=== PATIENT | female | born 1990 | race Caucasian/White ===

== ENCOUNTER 2017-03-17 18:29 | Outpatient (CLI) | payer OTHER ==
[~2017-03-17] VITALS: Ht 160 cm; Wt 69.0 kg
[~2017-03-17 18:29] MED LIST: BISM262O23 PO
[2017-03-17] MEDS ORDERED: PNV11TAB PO (19:07)
[2017-03-17] MEDS ORDERED: FERR236T PO (19:08)
[2017-03-17 19:09] VITALS: BP 108/60; PULSE 80; RESP 18
[2017-03-17 20:20] LABS: ADD UMIC NO; UR ASCORBIC ACID NEGATIVE (NEGATIVE); UR BILIRUBIN (Dip) NEGATIVE (NEGATIVE); UR BLOOD (Dip) NEGATIVE (NEGATIVE); UR CLARITY CLEAR (CLEAR); UR COLOR COLORLESS (YELLOW); UR GLUCOSE (Dip) NEGATIVE (NEGATIVE); UR KETONES (Dip) NEGATIVE (NEGATIVE); UR LEUKOCYTE ESTERASE (Dip) NEGATIVE Leu/ul (NEGATIVE); UR NITRITE (Dip) NEGATIVE (NEGATIVE); UR SPECIFIC GRAVITY (Dip) 1.002 (1.003-1.030); UR TOTAL PROTEIN (Dip) NEGATIVE (NEGATIVE); UR UROBILINOGEN (Dip) NEGATIVE (NEGATIVE)
[2017-03-17 20:33] LABS: BASOPHILS % 0.3 % (0.0-2.0); EOSINOPHILS # 0.1 10^3/ul (0.0-0.5); EOSINOPHILS % 1.3 % (0.0-7.0); HEMATOCRIT 31.1 % (37.0-47.0); HEMOGLOBIN 10.5 g/dl (12.0-16.0); LYMPHOCYTES % 29.7 % (15.0-51.0); MEAN CORPUSCULAR HEMOGLOBIN 32.8 pg (29.0-33.0); MEAN CORPUSCULAR HGB CONC 33.8 g/dl (32.0-37.0); MEAN CORPUSCULAR VOLUME 97.2 fl (82.0-101.0); MEAN PLATELET VOLUME 11.5 fl (7.4-10.4); MONOCYTE # 0.5 10^3/ul (0.3-0.9); MONOCYTES % 7.2 % (0.0-11.0); NEUTROPHIL # 4.2 10^3/ul (1.6-7.5); NEUTROPHILS % 61.2 % (39.0-77.0); PLATELET COUNT 158 10^3/UL (140-415); RED CELL DISTRIBUTION WIDTH 12.8 % (11.5-14.5); WHITE BLOOD COUNT 6.8 10^3/ul (4.8-10.8)
--- NOTE | 2017-03-17 20:38 | RADRPT ---
PROCEDURE: Right upper quadrant abdominal ultrasound. CLINICAL INDICATION: Abdominal pain TECHNIQUE: Gunter scale and color doppler ultrasound images of the right upper quadrant of the abdom en. COMPARISON: None FINDINGS: Pancreas: Not adequately visualized due to overlying bowel gas. Liver: Morphology:Normal in size. Contour:Normal, no evidence of nodularity. Echogenicity: Normal. Focal lesions:None. Main portal vein: Patent with hepatopetal flow. Biliary System: Gallbladder wall: Normal thickness. Gallstones: None. Intrahepatic bile ducts: Normal caliber. Common bile duct diameter (mm): 2.3 Kidneys: Right length (cm) : 11.5 Right cortical thickness: Normal. Echogenicity: Normal. Hydronephrosis: None. Renal calculi: None. Focal lesions: None. Free fluid/ascites: None. Abdominal aorta: Normal caliber of the visualized segments. Other findings: None. IMPRESSION: Normal gallbladder without gallstones. RPTAT: AADD .Antione Johnston MD, MD Date Time Electronically viewed and signed by .Antione Johnston MD, on 03/17/2017 20:38 .B/
[2017-03-17 21:12] LABS: ALBUMIN 3.3 g/dl (3.3-4.9); ALBUMIN/GLOBULIN RATIO 1.17; BILIRUBIN,INDIRECT 0.2 mg/dl (0-1.1); BILIRUBIN,TOTAL 0.2 mg/dl (0.2-1.3); CALCIUM 8.4 mg/dl (8.4-10.2); CREATININE 0.6 mg/dl (0.44-1.00); POTASSIUM 3.8 mmol/L (3.5-5.1); TOTAL PROTEIN 6.1 g/dl (6.1-8.1)
--- NOTE | 2017-03-17 22:40 | RADRPT ---
PROCEDURE: ULTRASOUND OBSTETRICAL CLINICAL INDICATION: 26-year-old female in labor for cervical length evaluation. TECHNIQUE: Multiple sonographic images of the pelvis were obtained. The images were reviewed on a PACS workstation. COMPARISON: No prior studies are available for comparison. FINDINGS: The cervix is closed with a length of 3.5 cm obtained transvaginally. Minimal fluid is seen within t he endocervical canal. There is a single viable intrauterine gestation. Cardiac activity is present with 152 beats per minute. There is a breech presentation. The placenta is a grade 1. There is no e vidence for an abruption or placenta previa. IMPRESSION: 1. Single viable intrauterine gestation with breech presentation. 2. The cervix has a length of 3.5 cm with minimal fluid. .Zach Berger MD, Date Time Electronically viewed and signed by .Zach Berger MD, on 03/17/2017 22:40 .M/
--- NOTE | 2017-03-17 23:55 | PN ---
Triage Information Date/Time Mar 17, 2017 Reason for visit: Oligohydramnios Weeks of Gestation 29w 3d /Para 2/1 Diabetes: none Hypertention: none Objective Vital Signs Date Time Temp Pulse Resp B/P Pulse Ox O2 Delivery O2 Flow Rate FiO2 03/17/17 19:09 98.4 80 18 108/60 100 Room Air Heart Rate: 130's Heart Rate Comments Accels to 150 bpm. No decels. Contractions: 6-10 Minutes Apart Exam Deferred. Results/Medications Result Diagram: 03/17/17201903/17/172019 Results 24 hrs Laboratory Tests Test 03/17/17 19:00 03/17/17 20:20 Urine Color COLORLESS Urine Clarity CLEAR Urine pH 7.0 Urine Specific [place] 1.002 L Urine Ketones NEGATIVE Urine Nitrite NEGATIVE Urine Bilirubin NEGATIVE Urine Urobilinogen NEGATIVE Urine Leukocyte Esterase NEGATIVE Urine Hemoglobin NEGATIVE Urine Glucose NEGATIVE Urine Total Protein NEGATIVE White Blood Count 6.8 # Red Blood Count 3.20 #L Hemoglobin 10.5 #L Hematocrit 31.1 #L Mean Corpuscular Volume 97.2 Mean Corpuscular Hemoglobin 32.8 Mean Corpuscular Hemoglobin Concent 33.8 Red Cell Distribution Width 12.8 Platelet Count 158 Mean Platelet Volume 11.5 H Neutrophils % 61.2 Lymphocytes % 29.7 Monocytes % 7.2 Eosinophils % 1.3 Basophils % 0.3 Nucleated Red Blood Cells % 0.0 Neutrophils # 4.2 Lymphocytes # 2.0 Monocytes # 0.5 Eosinophils # 0.1 Basophils # 0.0 Nucleated Red Blood Cells # 0.0 Sodium Level 135 Potassium Level 3.8 Chloride Level 105 Carbon Dioxide Level 25 Anion Gap 9 Blood Urea Nitrogen 9 Creatinine 0.60 Glucose Level 89 Calcium Level 8.4 Total Bilirubin 0.2 Direct Bilirubin 0.00 Indirect Bilirubin 0.2 Aspartate Amino Transf (AST/SGOT) 16 Alanine Aminotransferase (ALT/SGPT) 25 Alkaline Phosphatase 88 Total Protein 6.1 Albumin 3.3 Globulin 2.80 Albumin/Globulin Ratio 1.17 Amylase Level 76 Lipase 103 Imaging Results Cx length 3.5 cm. RUQ US negative. Disposition: Discharge Assessment/Plan A: IUP at 29w 3d. RUQ pain. H/O gastritis. P: D/C home. Pt is feeling much better now. Encouraged to keep up fluid intake. PTL precautions given. May take TUMs, OTC Prilosec or Zantac or Tagamet. Had some contractions on admit that she didn't feel and after p.o. hydration they spaced out a lot. RAFITA CHATTERJEE MD Mar 17, 2017 23:55
--- NOTE | 2017-03-18 00:11 | TRIAGE ---
OB Triage Datetime Report Generated by CPN: 03/18/2017 00:10 Datetime: 03/17/2017 23:39 Stage of : OB Triage Monitor Mode: External Quality: Mild Pattern: Normal: <= 5 Contractions in 10 Minutes Resting Tone [place]: Relaxed Heart Rate FHR Baseline Rate: 130 Monitor Mode: External US FHR Baseline Changes: No Baseline Change Variability: Moderate 6-25 bpm Accelerations: 10X10 Decelerations: None Category: Category I Pain Assessment Pain Scale: 2 Datetime: 03/17/2017 22:40 Stage of : OB Triage Heart Rate FHR Baseline Rate: 130 Monitor Mode: External US Datetime: 03/17/2017 21:51 Stage of : OB Triage Labor Evaluation Frequency: 1.5-4 Monitor Mode: External Duration (sec)2399: 20-50 Quality: Mild Pattern: Normal: <= 5 Contractions in 10 Minutes Resting Tone [place]: Relaxed Contraction Comments: Pt denies cramping Heart Rate FHR Baseline Rate: 130 Monitor Mode: External US FHR Baseline Changes: No Baseline Change Variability: Moderate 6-25 bpm Accelerations: 10X10 Decelerations: None Category: Category I Datetime: 03/17/2017 21:20 Stage of : OB Triage Monitor Mode: External Duration (sec)2399: 10-20sec Quality: Mild Resting Tone [place]: Relaxed Contraction Comments: Pt denies feeling cramping, just upper abd pain Heart Rate FHR Baseline Rate: 130 Monitor Mode: External US FHR Baseline Changes: No Baseline Change Variability: Moderate 6-25 bpm Accelerations: 10X10 Decelerations: None Category: Category I Pain Assessment Pain Scale: 4 Pain Type: Sharp Pain Location: Abdomen Datetime: 03/17/2017 20:41 Stage of : OB Triage Heart Rate FHR Baseline Rate: 140 Monitor Mode: External US Datetime: 03/17/2017 20:11 Heart Rate FHR Baseline Rate: 140 Monitor Mode: External US FHR Baseline Changes: No Baseline Change Variability: Moderate 6-25 bpm Accelerations: 15X15 Decelerations: None Category: Category I Datetime: 03/17/2017 20:00 Stage of : OB Triage Datetime: 03/17/2017 19:40 Stage of : OB Triage Labor Evaluation Frequency: 0 Monitor Mode: External Pattern: Normal: <= 5 Contractions in 10 Minutes Resting Tone [place]: Relaxed Heart Rate FHR Baseline Rate: 140 Monitor Mode: External US FHR Baseline Changes: No Baseline Change Variability: Moderate 6-25 bpm Accelerations: 15X15 Decelerations: None Category: Category I Pain Assessment Pain Scale: 6 Pain Presence: Intermittent Pain Type: Sharp Pain Location: Abdomen Pain Assessment Comments: upper abdomen Datetime: 03/17/2017 19:15 Vaginal Exam Membrane Status: Intact Datetime: 03/17/2017 19:03 Stage of : OB Triage Assessment Type: Triage Maternal Assessment Level of Consciousness: Fully Conscious Headache: Denies Blurred Vision: No Respiratory Effort: Unlabored; Regular Rhythm; Equal Expansion Breath Sounds, Left: Clear and Equal Breath Sounds, Right: Clear and Equal Nausea/Vomiting: Denies RUQ Epigastric Pain: Denies Lower Extremities Edema: None Degree: None Upper Extremities Edema: None Degree: None Facial Edema: None Temperature Route: Oral Fall Risk Assessment History of Falling: (0) No Secondary Diagnosis: (0) No Ambulatory Aid: (0) Bedrest/Nurse Assist IV Therapy: (0) No Gait: (0) Normal/Bedrest/Immobile Mental Status: (0) Oriented to Own Ability Fall Score: 0 Fall Risk Score Definition: No Risk: No action required Pain Assessment Pain Scale: 7 Pain Presence: Constant Pain Type: Sharp Pain Location: Abdomen (Annotations: upper right abdomen) Datetime: 03/17/2017 19:01 Time of Arrival: 03/17/2017 18:12 EGA: 29.3 Arrived By: Ambulatory Arrived From: Home Chief Complaint: upper abdominal pain, sharp, 6-7/10, for past week, mostly at night. Today pain started around 1430. Movement: Present Contractions: Denies/Absent Rupture of Membranes: Denies Vaginal Bleeding: None Vaginal Discharge: Present Recent Sexual Intercouse: Denies Abdominal Trauma: Not Applicable Patient Complaints: Other Additional Patient Complaints: clear to whitish discharge, lower back pain x2 days Time Provider Notified: 03/17/2017 19:40 Provider Notified: Dr Agarwal Initial Plan: EFM x2
== END 2017-03-17 23:48 | disposition home or self-care (01) ==
LOC: OBT 18:29 → L-D 18:30 → OBT 23:48
DX: O41.03X0 Oligohydramnios, third trimester, not applicable or unspecified (principal); Z3A.29 29 weeks gestation of pregnancy
CPT/HCPCS: 76705; 76817; 80053; 81003; 82150; 83690; 85025; G0463

== ENCOUNTER 2017-05-26 19:30 | Inpatient (IN) | END 2017-05-30 16:16 | disposition home or self-care (01) | DRG 775 ==